=== PATIENT | male | born 1955 | race Caucasian/White ===

== ENCOUNTER 2017-07-12 02:52 | Emergency (ER) | payer OTHER ==
--- NOTE | 2017-07-12 06:55 | NUR ---
[facility] was down. See downtime paper work
[2017-07-12 07:11] LABS: BASOPHILS % (AUTO) 0.2 % (0.0-2.0); EOSINOPHILS # (AUTO) 0.4 K/uL (0.0-0.7); EOSINOPHILS % (AUTO) 5.5 % (0.0-7.0); HEMATOCRIT 44.7 % (40-50); HEMOGLOBIN 14.8 G/DL (14.0-18.0); LYMPHOCYTES # (AUTO) 1.3 K/UL (0.8-4.8); LYMPHOCYTES % (AUTO) 16.4 % (20.5-51.5); MEAN CORPUSCULAR HEMOGLOBIN 30.3 UUG (27.0-31.0); MEAN CORPUSCULAR HGB CONC 33 g/dL (32.0-37.0); MEAN CORPUSCULAR VOLUME 91.7 FL (82.0-92.0); MONOCYTES % (AUTO) 12.8 % (0.0-11.0); NEUTROPHILS # (AUTO) 5.2 K/UL (1.8-8.9); NEUTROPHILS % (AUTO) 65.1 % (38.5-71.5); PLATELET COUNT (AUTO) 239 K/UL (150-450); RED BLOOD CELL COUNT(AUTO) 4.87 MIL/UL (4.7-6.1); WHITE BLOOD COUNT (AUTO) 7.9 K/UL (4.0-11.2)
[2017-07-12 07:52] LABS: *BILIRUBIN,URIN NEGATIVE (NEGATIVE); *BLOOD, URINE Trace-lysed (NEGATIVE); *CLARITY,URINE CLEAR (CLEAR); *COLOR,URINE YELLOW (YELLOW); *KETONES,URINE NEGATIVE (NEGATIVE); *PROTEIN,URINE NEGATIVE (NEGATIVE); *UROBILINOGEN,URINE 0.2 E.U./dl (NORMAL); LEUKOCYTE ESTERASE ,URINE NEGATIVE (NEGATIVE); NITRITE, URINE NEGATIVE (NEGATIVE); PH,URINE 5.5 (5.0-8.0); UGLUCOSE NEGATIVE (NEGATIVE)
[2017-07-12 07:53] LABS: BACTERIA,URINE NONE SEEN /HPF (NONE SEEN); RBC,URINE 0-3 /HPF (0-3); SQUAMOUS EPITHELIAL CELL,UR FEW /HPF (NONE SEEN); WBC,URINE 0-3 /HPF (0-3)
[2017-07-12 07:58] LABS: CREATININE 1.3 mg/dL (0.6-1.3); POTASSIUM 4.3 mmol/L (3.5-5.1)
== END 2017-07-12 06:56 | disposition home or self-care (01) ==
LOC: ER 02:52
DX: R10.13 Epigastric pain (principal)
CPT/HCPCS: 36415; 70030-TC; 83690; 85025